=== PATIENT | female | born 2000 | race Caucasian/White ===

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

== ENCOUNTER 2018-02-04 21:50 | Emergency (ER) | payer OTHER ==
[2018-02-04 23:29] LABS: ABSOLUTE BASOPHILS # (AUTO) 0.1 10^3/uL (0.0-0.2); ABSOLUTE EOSINOPHILS # (AUTO) 0.2 10^3/uL (0.0-0.6); ABSOLUTE MONOCYTES (AUTO) 0.5 10^3/uL (0.1-1.4); ABSOLUTE NEUT (AUTO) 3.5 10^3/uL (1.7-8.2); BASOPHILS % (AUTO) 0.8 % (0-2); EOSINOPHILS % (AUTO) 3.3 % (0-6); HEMATOCRIT 39.7 % (36.0-47.0); HEMOGLOBIN 13.1 g/dL (12.0-15.5); LYMPHOCYTES % (AUTO) 41.1 % (13-45); MEAN CORPUSCULAR HEMOGLOBIN 26.4 pg (27.0-33.4); MEAN CORPUSCULAR HGB CONC 33.1 g/dL (32.0-36.0); MEAN CORPUSCULAR VOLUME 80 fl (80-97); MONOCYTES % (AUTO) 6.3 % (3-13); PLATELET COUNT 309 10^3/uL (150-450); RED BLOOD COUNT 4.97 10^6/uL (3.72-5.28); RED CELL DISTRIBUTION WIDTH 15.4 % (11.5-14.0); SEGMENTED NEUTROPHILS % (AUTO) 48.5 % (42-78); TOTAL CELLS COUNTED % (AUTO) 100 %; WHITE BLOOD COUNT 7.3 10^3/uL (4.0-10.5)
[2018-02-04 23:36] LABS: APPEARANCE,URINE SLIGHTLY-CLOUDY; BILIRUBIN,URINE NEGATIVE (NEGATIVE); COLOR,URINE YELLOW; GLUCOSE, URINE NEGATIVE (NEGATIVE); KETONES,URINE NEGATIVE (NEGATIVE); LEUKOCYTE ESTERASE,URINE NEGATIVE (NEGATIVE); NITRITE,URINE NEGATIVE (NEGATIVE); PROTEIN,URINE NEGATIVE (NEGATIVE); URINE SPECIFIC GRAVITY 1.019
[2018-02-04 23:45] LABS: ALANINE AMINOTRANSFERASE 28 U/L (5-35); ALBUMIN 4.3 g/dL (3.7-5.6); ALKALINE PHOSPHATASE 42 U/L (50-135); ANION GAP 11 (5-19); ASPARTATE AMINO TRANSFERASE 18 U/L (5-30); BILIRUBIN,DIRECT 0.1 mg/dL (0.0-0.4); BILIRUBIN,TOTAL 0.3 mg/dL (0.2-1.3); BLOOD UREA NITROGEN 12 mg/dL (7-20); CALCIUM 9.5 mg/dL (8.4-10.2); CARBON DIOXIDE 23 mmol/L (22-30); CHLORIDE 106 mmol/L (98-107); GLUCOSE 103 mg/dL (75-110); POTASSIUM 4.2 mmol/L (3.6-5.0); TOTAL PROTEIN 7.1 g/dL (6.3-8.2)
[2018-02-04 23:46] LABS: ACETAMINOPHEN < 10 ug/mL (10-30); ALCOHOL < 10 mg/dL (NONE DETECTED); SALICYLATE < 1.0 mg/dL (2.0-20.0)
[2018-02-04 23:51] LABS: URINE AMPHETAMINES SCREEN NEGATIVE; URINE BARBITURATES SCREEN NEGATIVE; URINE BENZODIAZEPINES SCREEN NEGATIVE; URINE COCAINE SCREEN NEGATIVE; URINE MARIJUANA (THC) SCREEN UNCONFIRMED POSITIVE; URINE METHADONE SCREEN NEGATIVE; URINE PHENCYCLIDINE SCREEN NEGATIVE
[2018-02-05] MEDS ORDERED: FLUOXETINE HCL 20 MG CAPSULE PO ONE (00:04)
--- NOTE | 2018-02-05 00:04 | ER Document Report ---
ED General - General Chief Complaint: Psych Problem Stated Complaint: PSYCH EVAL Time Seen by Provider: 02/04/18 22:32 Notes: Patient is a 17-year-old female without chronic medical problems who presents with several months of progressively worsening depression and apathy. The patient states that she does not "feel anything" and has been feeling increasingly depressed over the past several days. She states that she has an appointment to be seen at [facility] but it is not until the end of the month and felt like she needed to seek care today due to the progression of her symptoms. The patient reports a long-standing history of daily passive suicidal ideation but notes that she has no plan or intention of completing suicide. States that her level of passive suicidality has not changed in years. Denies access to firearms. She has never tried to harm herself in the past. No previous psychiatric hospitalizations. She has never been on therapy for depression. She denies any acute medical concerns. TRAVEL OUTSIDE OF THE [place] IN LAST 30 DAYS: No - Related Data Allergies/Adverse Reactions: morphine [Morphine] Allergy (Mild, Verified 02/04/18 21:54) Past Medical History - General Information source: Patient - Social History Smoking Status: Never Smoker Frequency of alcohol use: None Drug Abuse: Marijuana Lives with: Spouse/Significant other Family History: CAD, CVA, DM, Hyperlipidemia, Hypertension, Malignancy Renal/ Medical History: Reports: Hx Ovarian Cysts. Denies: Hx Peritoneal Dialysis Musculoskeletal Medical History: Reports Hx Musculoskeletal Deformity - scoliosis 40 degree curvature Past Surgical History: Reports: Hx Oral Surgery - Dental implant, Hx Orthopedic Surgery - Ash rods - Immunizations Immunizations up to date: Yes Hx Diphtheria, Pertussis, Tetanus Vaccination: Yes Review of Systems - Review of Systems Notes: Constitutional: Negative for fever. HENT: Negative for sore throat. Eyes: Negative for visual changes. Cardiovascular: Negative for chest pain. Respiratory: Negative for shortness of breath. Gastrointestinal: Negative for abdominal pain, vomiting or diarrhea. Genitourinary: Negative for dysuria. Musculoskeletal: Negative for back pain. Skin: Negative for rash. Neurological: Negative for headaches, weakness or numbness. 10 point ROS negative except as marked above and in HPI. Physical Exam - Vital signs Vitals: Temp Pulse Resp BP Pulse Ox 97.8 F 66 18 112/59 L 100 02/04/18 22:13 02/04/18 22:13 02/04/18 22:13 02/04/18 22:13 02/04/18 22:13 Interpretation: Normal Notes: PHYSICAL EXAMINATION: GENERAL: Well-appearing, well-nourished and in no acute distress. HEAD: Atraumatic, normocephalic. EYES: sclera anicteric, conjunctiva are normal. ENT: Moist mucous membranes. NECK: Normal range of motion LUNGS: Normal work of breathing HEART: 2+ radial pulses bilaterally EXTREMITIES: no pitting or edema. No cyanosis. NEUROLOGICAL: No focal neurological deficits. Moves all extremities spontaneously and on command. PSYCH: Poor eye contact, depressed mood. Denies SI or HI. SKIN: Warm, Dry, normal turgor, no rashes or lesions noted. Course - Re-evaluation Re-evalutation: 02/05/18 00:02 Patient presents with depression, feeling like she has lack of motion, lack of drive or energy. She notes that she chronically has passive suicidal ideation but is very clear to deny any specific plan, means or intentions but wish to complete suicide. The patient has no prior attempts on her life, no prior hospitalizations for suicidal ideation. She does not have access to firearms. She is willing to contract for safety. I do not believe she meets involuntary commitment criteria. Medical screening exam and labs unremarkable. The patient has elected to go home and follow-up as an outpatient. I have started her on fluoxetine 20 mg daily. At this time will discharge with return precautions and follow-up recommendations. Verbal discharge instructions given a the bedside and opportunity for questions given. Medication warnings reviewed. Patient is in agreement with this plan and has verbalized understanding of return precautions and the need for primary care follow-up in the next 24-72 hours. - Vital Signs Vital signs: Temp Pulse Resp BP Pulse Ox 98.1 F 70 18 110/60 100 02/05/18 00:12 02/05/18 00:12 02/05/18 00:12 02/05/18 00:12 02/05/18 00:12 - Laboratory Result Diagrams: 02/04/18 23:15 02/04/18 23:15 Laboratory results interpreted by me: 02/04/18 02/04/18 02/04/18 23:15 23:15 23:15 MCH 26.4 L RDW 15.4 H Alkaline Phosphatase 42 L Urine Urobilinogen 2.0 H Salicylates < 1.0 L Acetaminophen < 10 L Discharge - Discharge Clinical Impression: Anxiety Depression Qualifiers: Depression Type: unspecified Qualified Code(s): F32.9 - Major depressive disorder, single episode, unspecified Condition: Good Disposition: HOME, SELF-CARE Additional Instructions: Please return if you have thoughts of wanting to hurt yourself, hurt others, or have any other symptoms that are concerning to you. Please take the fluoxetine daily. This medication will take approximately 6 weeks before you notice any major effects. Please do not stop this medication abruptly. Please follow-up with 1 of the listed resources as soon as possible so that your therapy can be continued. Prescriptions: Fluoxetine HCl 20 mg PO DAILY #30 tablet Referrals: KEITH NUGENT DO [Primary Care Provider] - Follow up as needed
[2018-02-05 00:30] VITALS: BP 110/60
== END 2018-02-05 00:12 | disposition home or self-care (01) ==
LOC: ER 21:50
DX: F32.9 Major depressive disorder, single episode, unspecified (principal); F41.9 Anxiety disorder, unspecified; R45.851 Suicidal ideations; F12.10 Cannabis abuse, uncomplicated; Z88.5 Allergy status to narcotic agent
CPT/HCPCS: 36415; 80053; 80307; 81001; 84703; 85025; 99284

== ENCOUNTER 2018-02-11 08:53 | Emergency (ER) | payer OTHER ==
--- NOTE | 2018-02-11 09:35 | ER Document Report ---
ED General - General Chief Complaint: Vision Problem Stated Complaint: DIFFICULTY BREATHING Time Seen by Provider: 02/11/18 09:17 TRAVEL OUTSIDE OF THE [place] IN LAST 30 DAYS: No - HPI Patient complains to provider of: insomnia Onset: Other - This 17-year-old female with a history of anxiety and depression presents for evaluation of insomnia over the last 7 days since starting Prozac. She notes that she had never been treated for depression in the past but has had issues with depression for some long time. She has been taking 20 mg of Prozac daily since that time and since has had difficulty sleeping. She denies any self-injurious thought notes that her depression is much better than it has been in the past, she denies any anxiety does endorse some palpitations. She has been utilizing a caffeine supplement daily. She has tried Benadryl and some melatonin to help with her sleep none of which have helped. - Related Data Allergies/Adverse Reactions: morphine [Morphine] Allergy (Mild, Verified 02/11/18 08:53) Past Medical History - General Information source: Patient - Social History Smoking Status: Never Smoker Family History: CAD, CVA, DM, Hyperlipidemia, Hypertension, Malignancy Renal/ Medical History: Reports: Hx Ovarian Cysts. Denies: Hx Peritoneal Dialysis Musculoskeletal Medical History: Reports Hx Musculoskeletal Deformity - scoliosis 40 degree curvature Past Surgical History: Reports: Hx Oral Surgery - Dental implant, Hx Orthopedic Surgery - Ash rods - Immunizations Immunizations up to date: Yes Hx Diphtheria, Pertussis, Tetanus Vaccination: Yes Review of Systems - Review of Systems -: Yes All other systems reviewed and negative Physical Exam - Vital signs Vitals: Temp Pulse Resp BP Pulse Ox 97.5 F 86 22 134/54 H 100 02/11/18 09:04 02/11/18 09:04 02/11/18 09:04 02/11/18 09:04 02/11/18 09:04 - General General appearance: Appears well In distress: None - HEENT Head: Normocephalic Eyes: Normal Conjunctiva: Normal Cornea: Normal Extraocular movements intact: Yes Eyelashes: Normal Pupils: PERRL - Respiratory Respiratory status: No respiratory distress Chest status: Nontender Breath sounds: Normal Chest palpation: Normal - Cardiovascular Rhythm: Regular Heart sounds: Normal auscultation Murmur: No - Abdominal Inspection: Normal Distension: No distension Tenderness: Nontender - Back Back: Normal - Extremities General upper extremity: Normal inspection, Nontender, Normal ROM, Normal strength General lower extremity: Normal inspection, Nontender, Normal ROM, Normal strength - Neurological Neuro grossly intact: Yes Cognition: Normal Orientation: AAOx4 [place] Coma Scale Eye Opening: Spontaneous [place] Coma Scale Verbal: Oriented [place] Coma Scale Motor: Obeys Commands [place] Coma Scale Total: 15 Speech: Normal Cranial nerves: Normal Cerebellar coordination: Normal Motor strength normal: LUE, RUE, LLE, RLE - Psychological Associated symptoms: Normal affect Course - Re-evaluation Re-evalutation: 02/11/18 11:17 This young lady who presents for evaluation of insomnia. She was previously being treated for depression with initiation of Prozac, she states that her depressive symptoms have greatly improved after the initiation of Prozac. She however has now developed insomnia which is not improving. She notes that she did have some palpitations prior to arrival. Will plan to obtain an EKG. EKG demonstrates normal morphology, no appreciable arrhythmia no prolonged QT no Brugada pattern. Will initiate treatment with BuSpar for this patient she is due to follow-up in approximately 10 days. Because that is the case will give her a short duration prescription, 5 mg nightly. - Vital Signs Vital signs: Temp Pulse Resp BP Pulse Ox 97.5 F 86 14 108/63 100 02/11/18 09:04 02/11/18 09:04 02/11/18 10:01 02/11/18 10:00 02/11/18 10:01 Discharge - Discharge Clinical Impression: Insomnia Qualifiers: Insomnia type: unspecified Qualified Code(s): G47.00 - Insomnia, unspecified Depression Qualifiers: Depression Type: unspecified Qualified Code(s): F32.9 - Major depressive disorder, single episode, unspecified Condition: Good Disposition: HOME, SELF-CARE Instructions: Insomnia ([facility]) Prescriptions: Buspirone HCl [Buspar 5 mg Tablet] 1 tab PO DAILY #15 tab Referrals: KEITH NUGENT DO [Primary Care Provider] - Follow up as needed
[2018-02-11 11:40] VITALS: BP 115/73
--- NOTE | 2018-02-11 13:23 | EKG REPORT ---
SEVERITY:- NORMAL ECG - SINUS RHYTHM : Confirmed by: Jaylon Gonsales MD 11-Feb-2018 13:23:16
== END 2018-02-11 11:41 | disposition home or self-care (01) ==
LOC: ER 08:53
DX: G47.00 Insomnia, unspecified (principal); F32.9 Major depressive disorder, single episode, unspecified; R00.2 Palpitations; Z88.5 Allergy status to narcotic agent
CPT/HCPCS: 93005; 93010; 99284

== ENCOUNTER 2018-06-23 10:45 | Emergency (ER) | payer OTHER ==
--- NOTE | 2018-06-23 11:03 | ER Document Report ---
HPI - HPI Time Seen by Provider: 06/23/18 10:55 Pain Level: 0 Notes: Patient is a 18-year-old female no significant past medical history who presents to the emergency department requesting a work note she was sent home because she has had intermittent nausea vomiting. She had 1 episode today of n/v, but that has since resolved. Patient states that she has been having intermittent nausea vomiting over the last 1-2 months for unknown reason. She has been taking home test that were negative, and is requesting a blood test. Patient states that she otherwise feels well and is able to eat and drink without any difficulties. She is urinating normally aside from increased frequency. She is having normal bowel movements. She has not had any other vaginal discharge, odor, or bleeding. Patient states that she has no concern of STD or STI and does not want testing for it. No other concerns or complaints. Denies any headache, fever, neck pain, URI, sore throat, chest pain, palpitations, syncope, cough, shortness of breath, wheeze, dyspnea, abdominal pain, diarrhea, urinary retention, dysuria, hematuria, or rash. - ROS Systems Reviewed and Negative: Yes All other systems reviewed and negative - REPRODUCTIVE Reproductive: DENIES: : Past Medical History - Social History Smoking Status: Never Smoker Family History: CAD, CVA, DM, Hyperlipidemia, Hypertension, Malignancy Renal/ Medical History: Reports: Hx Ovarian Cysts. Denies: Hx Peritoneal Dialysis Musculoskeletal Medical History: Reports Hx Musculoskeletal Deformity - scoliosis 40 degree curvature Past Surgical History: Reports: Hx Oral Surgery - Dental implant, Hx Orthopedic Surgery - Ash rods - Immunizations Immunizations up to date: Yes Hx Diphtheria, Pertussis, Tetanus Vaccination: Yes Vertical Provider Document - CONSTITUTIONAL Agree With Documented VS: Yes Notes: PHYSICAL EXAMINATION: GENERAL: Well-appearing, well-nourished and in no acute distress. HEAD: Atraumatic, normocephalic. EYES: Pupils equal round and reactive to light, extraocular movements intact, sclera anicteric, conjunctiva are normal. ENT: Nares patent and without discharge. oropharynx clear without exudates. No tonsilar hypertrophy or erythema. Moist mucous membranes. NECK: Normal range of motion, supple without lymphadenopathy LUNGS: Breath sounds clear to auscultation bilaterally and equal. No wheezes rales or rhonchi. HEART: Regular rate and rhythm without murmurs, rubs, gallops. ABDOMEN: Soft, nontender, nondistended abdomen. No guarding, no rebound. No masses appreciated. Normal bowel sounds present. No CVA tenderness bilaterally. : deferred. pt declined. Musculoskeletal: FROM to passive/active. Strength 5+/5. Extremities: No cyanosis, clubbing, or edema b/l. Peripheral pulses 2+. Capillary refill less than 3 seconds. NEUROLOGICAL: Normal speech, normal gait. PSYCH: Normal mood, normal affect. SKIN: Warm, Dry, normal turgor, no rashes or lesions noted. - INFECTION CONTROL TRAVEL OUTSIDE OF THE [place] IN LAST 30 DAYS: No Course - Re-evaluation Re-evalutation: 06/23/18 12:03 Patient is an afebrile, well-hydrated, 18-year-old female who presents emergency department with intermittent nausea and vomiting, unspecified. Vitals are acceptable without significant tachycardia, tachypnea, or hypoxia. PE is otherwise unremarkable. Patient's abdomen is soft and nontender. Her lungs are clear to auscultation bilaterally. She is nontoxic-appearing and is tolerating p.o. without difficulty. HCG testing was negative. Urinalysis unremarkable. Patient states that she has Zofran at home that she can use if needed. She is currently asymptomatic. No other concerns or complaints. Low suspicion/risk for acute appendicitis, bowel obstruction, acute cholecystitis, acute cholangitis, perforated diverticulitis, incarcerated hernia, pancreatitis, perforated ulcer, peritonitis, sepsis, pelvic inflammatory disease, ectopic , tubo-ovarian abscess, ovarian torsion, or other systemic emergent condition at this time. Patient is aware that her condition can change from initial presentation and she needs to monitor symptoms closely and seek medical attention if any acute changes. Conservative measures otherwise for symptoms. Recheck with your PCM in 3-5 days. Consider consult with a stack attendant. Return to the ED with any worsening/concerning symptoms otherwise as reviewed in discharge. Patient is in agreement. Discharge - Discharge Clinical Impression: Nausea and vomiting Qualifiers: Vomiting type: unspecified Vomiting Intractability: non-intractable Qualified Code(s): R11.2 - Nausea with vomiting, unspecified Condition: Stable Disposition: HOME, SELF-CARE Instructions: Vomiting ([facility]) Additional Instructions: Maintain adequate fluid and food intake [place] diet ([employer] Bananas, rice, apples, toast, etc Zofran as needed tylenol if needed Monitor for any worsening symptoms Make sure you are staying hydrated enough to urinate and have normal BM's Recheck with your PCM in 3-5 days Consider consult with Gastroenterology for ongoing/worsening symptoms Return to the ED with any worsening symptoms and/or development of fever, headache, chest pain, palpitations, syncope, shortness of breath, trouble breathing, abdominal pain, n/v/d, blood in stool/urine, weakness, or other worsening symptoms that are concerning to you. Forms: Return to Work, Elevated Blood Pressure Referrals: KEITH NUGENT DO [NO LOCAL MD] - Follow up as needed TOD PATEL MD [ACTIVE STAFF] - Follow up as needed [facility] [Provider Group] - Follow up as needed
[2018-06-23 11:29] LABS: APPEARANCE,URINE CLEAR; BILIRUBIN,URINE NEGATIVE (NEGATIVE); COLOR,URINE COLORLESS; GLUCOSE, URINE NEGATIVE (NEGATIVE); KETONES,URINE NEGATIVE (NEGATIVE); LEUKOCYTE ESTERASE,URINE NEGATIVE (NEGATIVE); NITRITE,URINE NEGATIVE (NEGATIVE); PROTEIN,URINE NEGATIVE (NEGATIVE); URINE SPECIFIC GRAVITY 1.002; UROBILINOGEN,URINE NEGATIVE mg/dL (<2.0)
[2018-06-23 12:08] VITALS: BP 128/60
== END 2018-06-23 12:12 | disposition home or self-care (01) ==
LOC: ER 10:45
DX: R11.2 Nausea with vomiting, unspecified (principal)
CPT/HCPCS: 36415; 81001; 84703; 87086; 87088; 99282

== ENCOUNTER 2019-01-04 01:40 | Emergency (ER) | payer SELFPAY ==
--- NOTE | 2019-01-04 01:58 | ER Document Report ---
ED Psych Disorder / Suicide - General Chief Complaint: Psych Problem Stated Complaint: PSYCH Time Seen by Provider: 01/04/19 01:58 Mode of Arrival: Ambulatory Information source: Patient Notes: HISTORY OF PRESENT ILLNESS: Patient is a 18-year-old female at 10+2 weeks with a past medical history of depression who presents with increasing depression after she was taken off most of her medications 2 weeks ago. Patient reports that when she found out she was , her physician took her off all of her medications except Zoloft which she currently is taking. She reports that she has been increasingly depressed and today felt as though she may want to hurt herself, however she denies a specific plan to harm herself. Patient is very tearful. Onset: 2 weeks ago Provocation: Taken off medications Quality: Depression Radiation: None Severity: Moderate Timing: Consistent SI/HI: Passive thoughts but no plan Hallucinations: None Current therapist: None Current treatment: Zoloft REVIEW OF SYSTEMS: CONSTITUTIONAL : Denies fever or chills, no sweats. Denies recent illness. EENT: Denies eye, ear, throat, or mouth pain or symptoms. Denies nasal or sinus congestion. CARDIOVASCULAR: Denies chest pain. RESPIRATORY: Denies cough, cold, or chest congestion. Denies shortness of breath, difficulty breathing, or wheezing. GASTROINTESTINAL: Denies abdominal pain. Denies nausea, vomiting, or diarrhea. Denies constipation. GENITOURINARY: Denies difficulty urinating, painful urination, burning, frequency, or blood in urine. FEMALE GENITOURINARY: Denies vaginal bleeding, abnormal or irregular periods. Last menstrual period MUSCULOSKELETAL: Denies neck or back pain or joint pain or swelling. SKIN: Denies rash or skin lesions. HEMATOLOGIC : Denies easy bruising or bleeding. LYMPHATIC: Denies swollen, enlarged glands. NEUROLOGICAL: Denies altered mental status or loss of consciousness. Denies headache. Denies weakness or paralysis or loss of use of either side. Denies problems with gait or speech. Denies sensory or motor loss. PSYCHIATRIC: Denies suicidal/homicidal thoughts. Positive for increasing depression. All other systems reviewed and negative. PHYSICAL EXAMINATION: GENERAL: Tearful but well-appearing, well-nourished and in no acute distress. HEAD: Atraumatic, normocephalic. No scalp deformity, depression, or crepitance. EYES: Pupils are 3 mm and equal/round/reactive to light, extraocular movements intact, sclera anicteric, conjunctiva are normal. ENT: Nares patent bilaterally, oropharynx clear without exudates or palatal petechia. Moist mucous membranes. No tonsil hypertrophy. NECK: Normal range of motion, supple without lymphadenopathy. LUNGS: Breath sounds present, equal, and clear to auscultation bilaterally. No wheezes, rales, or rhonchi. HEART: Regular rate and rhythm without murmurs, rubs, or gallops. 2+ peripheral pulses. Normal capillary refill. ABDOMEN: Soft, nontender, nondistended. Normoactive bowel sounds. No guarding, no rebound. No masses appreciated. BACK: Normal contour, no midline tenderness. Rectal exam deferred. GENITAL/PELVC: Deferred. EXTREMITIES: Normal range of motion, no pitting or edema. No cyanosis. NEUROLOGICAL: No focal neurological deficits. Moves all extremities spontaneously and on command. PSYCH: Depressed mood, normal affect. No active suicidal thoughts/ideations. No homicidal thoughts/ideations. No hallucinations. SKIN: Warm, dry, normal turgor, no rashes or lesions noted. ASSESSMENT AND PLAN: This patient is a 18-year-old female at 10+2 weeks who presents with increasing depression in the setting of being taken off her medications after finding out she was . 1. Will obtain medical clearance and IVC for inpatient treatment. 2. Will observe her overnight. TRAVEL OUTSIDE OF THE [place] IN LAST 30 DAYS: No - HPI Patient complains to provider of: Other - Depression Onset: Other - 2 weeks ago Onset was: Gradual Quality of pain: No pain Severity: None Pain Level: Denies Situational problems related to: Other - Recently found that she was and was taken off of her medications Normal mood: No - Depressed Associated symptoms: Depressed Similar symptoms previously: Yes Recently seen / treated by doctor: No - Related Data Allergies/Adverse Reactions: morphine [Morphine] Allergy (Mild, Verified 01/04/19 01:42) Past Medical History - General Information source: Patient - Social History Smoking Status: Never Smoker Chew tobacco use (# tins/day): No Frequency of alcohol use: None Drug Abuse: None Lives with: Family Family History: CAD, CVA, DM, Hyperlipidemia, Hypertension, Malignancy Patient has suicidal ideation: No Patient has homicidal ideation: No - Past Medical History Cardiac Medical History: Reports: None Pulmonary Medical History: Reports: None EENT Medical History: Reports: None Neurological Medical History: Reports: None Endocrine Medical History: Reports: None Renal/ Medical History: Reports: Hx Ovarian Cysts. Denies: Hx Peritoneal Dialysis Malignancy Medical History: Reports: None GI Medical History: Reports: None Musculoskeletal Medical History: Reports Hx Musculoskeletal Deformity - scoliosis 40 degree curvature Skin Medical History: Reports None Psychiatric Medical History: Reports: Hx Depression Traumatic Medical History: Reports: None Infectious Medical History: Reports: None Past Surgical History: Reports: Hx Oral Surgery - Dental implant, Hx Orthopedic Surgery - Ash rods - Immunizations Immunizations up to date: Yes Hx Diphtheria, Pertussis, Tetanus Vaccination: Yes Review of Systems - Review of Systems Constitutional: No symptoms reported EENT: No symptoms reported Cardiovascular: No symptoms reported Respiratory: No symptoms reported Gastrointestinal: No symptoms reported Genitourinary: No symptoms reported Female Genitourinary: No symptoms reported Musculoskeletal: No symptoms reported Skin: No symptoms reported Hematologic/Lymphatic: No symptoms reported Neurological/Psychological: See HPI, Depression -: Yes All other systems reviewed and negative Physical Exam - Vital signs Vitals: Temp Pulse Resp BP Pulse Ox 98.3 F 100 16 132/68 H 98 01/04/19 01:56 01/04/19 01:56 01/04/19 01:56 01/04/19 01:56 01/04/19 01:56 Interpretation: Normal - General General appearance: Appears well, Alert - HEENT Head: Normocephalic, Atraumatic Eyes: Normal Pupils: PERRL - Respiratory Respiratory status: No respiratory distress Chest status: Nontender Breath sounds: Normal Chest palpation: Normal - Cardiovascular Rhythm: Regular Heart sounds: Normal auscultation Murmur: No - Abdominal Inspection: Normal Distension: No distension Bowel sounds: Normal Tenderness: Nontender Organomegaly: No organomegaly - Back Back: Normal, Nontender - Extremities General upper extremity: Normal inspection, Nontender, Normal color, Normal ROM, Normal temperature General lower extremity: Normal inspection, Nontender, Normal color, Normal ROM, Normal temperature, Normal weight bearing. No: Katie's sign - Neurological Neuro grossly intact: Yes Cognition: Normal Orientation: AAOx4 Briana Coma Scale Eye Opening: Spontaneous Briana Coma Scale Verbal: Oriented [place] Coma Scale Motor: Obeys Commands Briana Coma Scale Total: 15 Speech: Normal Motor strength normal: LUE, RUE, LLE, RLE Sensory: Normal - Psychological Associated symptoms: Normal affect, Normal mood - Skin Skin Temperature: Warm Skin Moisture: Dry Skin Color: Normal Course - Re-evaluation Re-evalutation: 01/04/19 05:57 Patient is medically cleared. Pelvic ultrasound reveals an early intrauterine gestation without complications. - Vital Signs Vital signs: Temp Pulse Resp BP Pulse Ox 98.3 F 100 16 132/68 H 98 01/04/19 01:56 01/04/19 01:56 01/04/19 01:56 01/04/19 01:56 01/04/19 01:56 - Laboratory Result Diagrams: 01/04/19 02:12 01/04/19 02:12 Laboratory results interpreted by me: 01/04/19 01/04/19 01/04/19 02:12 02:12 02:12 MCV 79 L MCH 26.2 L RDW 14.8 H TSH 5.72 H Beta HCG, Quant 74015.00 H Salicylates < 1.0 L Acetaminophen < 10 L - Diagnostic Test Radiology reviewed: Image reviewed, Reports reviewed - EKG Interpretation by Me EKG shows normal: Sinus rhythm Rate: Normal Rhythm: NSR Felt/QRS: No: Right axis deviation, Left axis deviation, RBBB, LBBB, IVCD, LAHB/LAFB, LPHB/LPFB, Bifasicular block Voltage: No: Increased voltage, Consistant with LVH, Decreased voltage, Throughout, Limb leads P Waves: No: KRIS, LAE, Absent, AV Dissociation, Other Heart block present: No: 1st Degree, Mobitz 1, Mobitz 2, CHB (3rd degree block) When compared to previous EKG there are: No significant change Discharge - Discharge Clinical Impression: Chronic depression Qualifiers: Weeks of gestation: less than 8 weeks Qualified Code(s): Z3A.01 - Less than 8 weeks gestation of Condition: Stable Disposition: PSYCH HOSP/UNIT
[2019-01-04 02:29] LABS: ABSOLUTE BASOPHILS # (AUTO) 0.1 10^3/uL (0.0-0.2); ABSOLUTE EOSINOPHILS # (AUTO) 0.3 10^3/uL (0.0-0.6); ABSOLUTE MONOCYTES (AUTO) 0.7 10^3/uL (0.1-1.4); ABSOLUTE NEUT (AUTO) 5.8 10^3/uL (1.7-8.2); BASOPHILS % (AUTO) 0.8 % (0-2); EOSINOPHILS % (AUTO) 2.5 % (0-6); HEMATOCRIT 40.1 % (36.0-47.0); HEMOGLOBIN 13.4 g/dL (12.0-15.5); LYMPHOCYTES % (AUTO) 30.1 % (13-45); MEAN CORPUSCULAR HEMOGLOBIN 26.2 pg (27.0-33.4); MEAN CORPUSCULAR HGB CONC 33.3 g/dL (32.0-36.0); MEAN CORPUSCULAR VOLUME 79 fl (80-97); MONOCYTES % (AUTO) 7.4 % (3-13); PLATELET COUNT 353 10^3/uL (150-450); RED CELL DISTRIBUTION WIDTH 14.8 % (11.5-14.0); SEGMENTED NEUTROPHILS % (AUTO) 59.2 % (42-78); TOTAL CELLS COUNTED % (AUTO) 100 %; WHITE BLOOD COUNT 9.8 10^3/uL (4.0-10.5)
[2019-01-04 02:46] LABS: ALBUMIN 4.6 g/dL (3.5-5.0); ALKALINE PHOSPHATASE 50 U/L (38-126); ANION GAP 11 (5-19); ASPARTATE AMINO TRANSFERASE 23 U/L (14-36); BILIRUBIN,TOTAL 0.4 mg/dL (0.2-1.3); BLOOD UREA NITROGEN 11 mg/dL (7-20); CARBON DIOXIDE 22 mmol/L (22-30); CHLORIDE 106 mmol/L (98-107); GLUCOSE 94 mg/dL (75-110); POTASSIUM 3.6 mmol/L (3.6-5.0); TOTAL PROTEIN 7.6 g/dL (6.3-8.2)
[2019-01-04 02:47] LABS: ACETAMINOPHEN < 10 ug/mL (10-30); ALCOHOL < 10 mg/dL (NONE DETECTED); SALICYLATE < 1.0 mg/dL (2.0-20.0)
[2019-01-04 03:14] LABS: FREE T4 (FREE THYROXINE) 0.99 ng/dL (0.78-2.19)
--- NOTE | 2019-01-04 03:24 | RADIOLOGY REPORT (SQ) ---
EXAM DESCRIPTION: US TRANSVAGINAL COMPLETED DATE/TME: 01/04/2019 02:07 CLINICAL HISTORY: 18 years, Female, Abdominal pain COMPARISON: None. TECHNIQUE: Transvaginal pelvic ultrasound LIMITATIONS: None. FINDINGS: Uterus: Anteverted. Measures 8.3 x 5.9 x 4.9 cm. Endometrium: Intrauterine gestational sac. Gestational sac: MSD measures 1.85 cm. Shape is oval. Two yolk sacs are visualized. No pole is seen at this time. Maternal ovaries: Right: Measures 2.4 x 2.1 x 1.6 cm. Normal doppler flow. Left: Measures 3.2 x 2.5 x 2.4 cm. Normal doppler flow. There is a corpus luteal cyst that measures 1.1 x 1.8 x 1.1 cm. Clinical: LMP: 10/24/2018. MA: 10 weeks two days. MARYLIN: 07/31/2019. Ultrasound: MA: Six weeks six days. MARYLIN: 08/24/2019. IMPRESSION: Intrauterine gestational sac with two yolk sacs identified. No pole is seen at this time, likely due to an early . Recommend follow-up ultrasound and correlation with beta-hCG. copyright 2010 [employer]- All Rights Reserved
[2019-01-04 03:28] LABS: THYROID STIMULATING HORMONE 5.72 uIU/mL (0.47-4.68)
[2019-01-04 08:35] LABS: APPEARANCE,URINE SLIGHTLY-CLOUDY; BILIRUBIN,URINE NEGATIVE (NEGATIVE); COLOR,URINE YELLOW; GLUCOSE, URINE NEGATIVE (NEGATIVE); KETONES,URINE 20 mg/dL (NEGATIVE); LEUKOCYTE ESTERASE,URINE NEGATIVE (NEGATIVE); NITRITE,URINE NEGATIVE (NEGATIVE); PROTEIN,URINE NEGATIVE (NEGATIVE); URINE SPECIFIC GRAVITY 1.015; UROBILINOGEN,URINE NEGATIVE mg/dL (<2.0)
[2019-01-04 08:47] LABS: URINE AMPHETAMINES SCREEN UNCONFIRMED POSITIVE; URINE BARBITURATES SCREEN NEGATIVE; URINE BENZODIAZEPINES SCREEN NEGATIVE; URINE COCAINE SCREEN NEGATIVE; URINE MARIJUANA (THC) SCREEN UNCONFIRMED POSITIVE; URINE METHADONE SCREEN NEGATIVE; URINE PHENCYCLIDINE SCREEN NEGATIVE
--- NOTE | 2019-01-04 09:27 | EKG REPORT ---
SEVERITY:- BORDERLINE ECG - SINUS RHYTHM BORDERLINE T ABNORMALITIES, INFERIOR LEADS : Confirmed by: Ban Zhou MD 04-Jan-2019 09:26:49
--- NOTE | 2019-01-04 09:52 | ER Document Report ---
Doctor's Note Notes: 01/04/19 09:50 Rounds: Chart reviewed, but patient talking on the phone so not interviewed at this time. Patient was brought in because of worsening depression. She is been diagnosed with depression and on medications, but was recently diagnosed as being so all of her medications were stopped except for her Zoloft. Patient says she is begun having some suicidal thoughts. Lab studies showed a TSH level borderline high. Urine drug screen is positive for marijuana and amphetamines. Patient's ultrasound shows a gestational sac and 2 kevin sacs but no pole. Beta hCG was 22,940. Possibly too early to see more findings because too early in . Vital signs are all normal. Patient appears to be medically stable for transfer or discharge. Douglas Asif MD 01/04/19 10:54 Discussed ultrasound findings with the patient and explained to her that she is with a gestational sac and 2 yolk sacs means she likely has twins. However, there is no evidence of the pole or heartbeat, etc. at this time. I told her that she needs a repeat ultrasound in a week or 10 days and she says she already has one scheduled for next Wednesday. Douglas Asif MD
--- NOTE | 2019-01-04 11:34 | PSYCHOLOGICAL NOTE ---
Psych Note - Psych Note Date seen by psych provider: 01/04/19 Time seen by psych provider: 10:05 Psych Note: Reason For Consult:Suicidal ideation Consent Permissions:enrique Rivero, Patient disclosed that she is very happy currently because she just found out she is having twins. She states last night she was feeling overwhelmed and thinks that "my levels just bottomed out... I really think it was my meds that messed me up." Patient states that 2 weeks ago under her providers direction she stopped taking all of her medications other than Zoloft. She states that last night she was unable to just see that it was her medication because she was so stressed. She reports she even stopped smoking 2 weeks ago because of her so felt that she had no way to release her emotions. She reports this is why she came to the hospital. Patient previously was on BuSpar, trazodone, Abilify, propanolol, Adderall, and Zoloft. They have health team contacted patient's Josefa nunez. He was unable to come to the hospital since the family only has one vehicle which is currently at the hospital with the patient. He discloses that he has no concerns with the patient returning home. He agrees to be part of patient's plan of care i.e. no access to medications weapons and follow through with mental health recommendations. Patient is alert and orientated to person, place, time and circumstance. Mood is euthymic with congruent affect as evidenced by smiling and engaging with clinician. Patient denies current suicidal and homicidal ideation. Delusions are absent and behaviors congruent with an intact reality based presentation I organized and linear thought process. Eye contact is well-maintained. Conversational speech is within normal rate, tone and prosody. Intellectual abilities appear to be within the average range. Attention and concentration are good. Insight, judgment, impulse control are fair. Diagnosis: Major Depressive Disorder Medication recommendations per [facility]'s contracted psychiatrist Dr. Jean Paul MONK are as follows no medication recommendations at this time Impression\\plan:Patient is cleared from acute psychiatric services. Patient does not meet IVC criteria per [place] GS 122C. Patient was experiencing passive suicidal ideation (ie no plans, means or intent) and feeling overwhelmed. She just stopped taking her medications, other than zoloft, 2 weeks ago (under her outpatient mental health provider guidance) when she found out she was . Patient has a history of chronic passive suicidal ideation and had never taken and actions, or engaged in gestures. Patient is calm and reports she is excited about her and finding out that it is twins. Patient significant other agrees to be part of patient's plan of care i.e. no access to medications and weapons and follow through with mental health recommendations. He has no concerns with the patient returning home to him. Patient is recommended to continue working with her outpatient mental health provider and engage in therapeutic services to assist during her and need for less medications. Dr. Siddiqui was consulted to care management of this patient; attending physicians in agreement with recommendations and disposition.
[2019-01-04 12:49] VITALS: BP 101/78
== END 2019-01-04 12:55 | disposition home or self-care (01) ==
LOC: ER 01:40 → EEVIPCON 01:40 → ER 12:55
DX: O99.351 Diseases of the nervous system complicating pregnancy, first trimester (principal); F32.9 Major depressive disorder, single episode, unspecified; Z3A.10 10 weeks gestation of pregnancy
CPT/HCPCS: 36415; 76817; 80053; 80307; 81001; 84439; 84443; 84702; 85025; 93005; 93010; 99285

== ENCOUNTER → 2019-01-10 | Outpatient (CLI) | payer SELFPAY ==
--- NOTE | 2019-01-10 17:20 | RADIOLOGY REPORT (SQ) ---
EXAM DESCRIPTION: U/S [id number] TRNABD 1GES W/ODOP COMPLETED DATE/TIME: 01/10/2019 4:37 pm REASON FOR STUDY: Z34.81 ENCOUNTER FOR SUPRVSN OF NORMAL , FIRST TRIMESTER Z34.81 ENCOUNTE R FOR SUPRVSN OF NORMAL , FIRST TRIM COMPARISON: None. TECHNIQUE: Transabdominal static and realtime grayscale images acquired of the pelvis. Additional se lected spectral and color Doppler images recorded. All images stored on PACs. CG: Not available. CLINICAL DATES: 11 weeks 1 day LIMITATIONS: None. FINDINGS: Twin Intra-uterine gestation TYPE OF TWIN: Monochorionic Monoamniotic. Single gestational sac. Single yolk sac. TWIN A: ULTRASOUND EGA: 6 weeks 2 days ULTRASOUND MARYLIN: 09/03/2019 EFW: Not applicable. Under 20 weeks. CRL: 5.6 mm GESTATIONAL SAC: Not applicable. FP present. SURVEY: Too early to assess. FHR: 108 bpm. AMNIOTIC FLUID: Adequate amount. PLACENTA: Too early to assess. SUBCHORIONIC BLEED: No. SIZE OF BLEED: Not applicable. TWIN B: ULTRASOUND EGA: 6 weeks 2 days ULTRASOUND MARYLIN: 09/03/2019 EFW: Not applicable. Under 20 weeks. CRL: 5.6 mm GESTATIONAL SAC: Not applicable. FP present. SURVEY: Too early to assess. FHR: 115 bpm. AMNIOTIC FLUID: Adequate amount. SUBCHORIONIC BLEED: No. SIZE OF BLEED: Not applicable. UTERUS: No masses. No anomalies. CERVICAL LENGTH: 1.9 cm. Closed. RIGHT ADNEXA: Normal ovary with normal vascular flow. No adnexal free fluid. No adnexal masses. LEFT ADNEXA: Normal ovary with normal vascular flow. No adnexal free fluid. No adnexal masses. FREE FLUID: None. OTHER: No other significant finding. IMPRESSION: LIVING TWIN INTRAUTERINE TWIN A EGA: 6 weeks 2 days. TWIN B EGA: 6 weeks 2 days. Trimester of : First trimester - 0 to 13 weeks. TECHNICAL DOCUMENTATION: JOB ID: [id number] [employer]- All Rights Reserved rev-09/10 Reading location - IP/workstation name: [email or web address]
== END ==
LOC: RAD 14:48
PROVIDERS: ATTEND Nurse Practitioner Family
DX: O30.001 Twin pregnancy, unspecified number of placenta and unspecified number of amniotic sacs, first trimester (principal)
CPT/HCPCS: 76801

== ENCOUNTER 2019-01-30 17:46 | Emergency (ER) | payer SELFPAY ==
[2019-01-30 18:39] VITALS: BP 112/62
--- NOTE | 2019-01-30 19:48 | ER Document Report ---
ED Medical Screen (RME) - General Chief Complaint: Numbness Stated Complaint: NUMBNESS,LEG PAIN Time Seen by Provider: 01/30/19 19:46 Mode of Arrival: Ambulatory Information source: Patient Notes: Patient states 2 days ago she was bent over washing the dog and when she stood up she had numbness to her legs. Patient states the numbness resolved and then today she was sitting down and stood up and had numbness in which she did not feel like her legs were holding her weight. Patient states symptoms lasted for about 15 minutes. Patient states that while she has been here she has developed left-sided abdominal pain. Patient is currently 9 weeks with a twin gestation. Patient does report a history of scoliosis with Ash shruthi placement. I have greeted and performed a rapid initial assessment of this patient. A comprehensive ED assessment and evaluation of the patient, analysis of test results and completion of the medical decision making process will be conducted by additional ED providers. TRAVEL OUTSIDE OF THE [place] IN LAST 30 DAYS: No - Related Data Allergies/Adverse Reactions: morphine [Morphine] Allergy (Mild, Verified 01/04/19 01:42) Past Medical History - Social History Chew tobacco use (# tins/day): No Frequency of alcohol use: None Renal/ Medical History: Reports: Hx Ovarian Cysts. Denies: Hx Peritoneal Dialysis Musculoskeltal Medical History: Reports Hx Musculoskeletal Deformity - scoliosis 40 degree curvature Psychiatric Medical History: Reports: Hx Depression Past Surgical History: Reports: Hx Oral Surgery - Dental implant, Hx Orthopedic Surgery - Ash rods - Immunizations Immunizations up to date: Yes Hx Diphtheria, Pertussis, Tetanus Vaccination: Yes Physical Exam - Vital signs Vitals: Temp Pulse Resp BP Pulse Ox 97.7 F 72 18 112/62 98 01/30/19 18:37 01/30/19 18:37 01/30/19 18:37 01/30/19 18:37 01/30/19 18:37 - General General appearance: Appears well, Alert Notes: Left side abdominal tenderness Course - Vital Signs Vital signs: Temp Pulse Resp BP Pulse Ox 97.7 F 72 18 112/62 98 01/30/19 18:37 01/30/19 18:37 01/30/19 18:37 01/30/19 18:37 01/30/19 18:37
== END 2019-01-30 20:30 | disposition left against medical advice (07) ==
LOC: ER 17:46
DX: Z53.21 Procedure and treatment not carried out due to patient leaving prior to being seen by health care provider (principal); O26.891 Other specified pregnancy related conditions, first trimester; R20.0 Anesthesia of skin; R10.9 Unspecified abdominal pain; R53.1 Weakness; O30.001 Twin pregnancy, unspecified number of placenta and unspecified number of amniotic sacs, first trimester; Z3A.09 9 weeks gestation of pregnancy
CPT/HCPCS: 99283

== ENCOUNTER 2019-05-20 15:09 | Emergency (ER) | payer MEDICAID ==
--- NOTE | 2019-05-20 16:44 | ER Document Report ---
HPI - HPI Time Seen by Provider: 05/20/19 16:30 Pain Level: 0 Context: Patient is a 19-year-old female, who is 27 weeks who presents to the emergency department with a chief complaint of cough and congestion. Patient reports for about 1 week she has felt generalized weakness, she has a cough that turned productive about 2 days ago. Patient reports runny nose and intermittent nasal congestion. Patient denies ear pain. Patient reports she does have multiple sick contacts at work that have similar symptoms and was recently diagnosed with the flu. Patient did not receive an influenza vaccine this season. Patient reports she does take a vitamin as well as Zoloft. Patient reports she is tried Benadryl and over the counter medications for her symptoms without much relief. Patient denies nausea, vomiting or diarrhea. Patient denies abdominal pain. Patient denies vaginal bleeding or discharge. - REPRODUCTIVE LMP: MARYLIN 09/03/2019 Reproductive: REPORTS: : Past Medical History - General Information source: Patient - Social History Smoking Status: Never Smoker Chew tobacco use (# tins/day): No Frequency of alcohol use: None Drug Abuse: None Lives with: Family Family History: CAD, CVA, DM, Hyperlipidemia, Hypertension, Malignancy Patient has suicidal ideation: No Patient has homicidal ideation: No - Past Medical History Cardiac Medical History: Reports: None Pulmonary Medical History: Reports: None EENT Medical History: Reports: None Neurological Medical History: Reports: None Endocrine Medical History: Reports: None Renal/ Medical History: Reports: Hx Ovarian Cysts. Denies: Hx Peritoneal Dialysis Malignancy Medical History: Reports: None GI Medical History: Reports: None Musculoskeletal Medical History: Reports Hx Musculoskeletal Deformity - scoliosis 40 degree curvature Skin Medical History: Reports None Psychiatric Medical History: Reports: Hx Depression Traumatic Medical History: Reports: None Infectious Medical History: Reports: None Past Surgical History: Reports: Hx Oral Surgery - Dental implant, Hx Orthopedic Surgery - Ash rods - Immunizations Immunizations up to date: Yes Hx Diphtheria, Pertussis, Tetanus Vaccination: Yes Vertical Provider Document - CONSTITUTIONAL Agree With Documented VS: Yes Exam Limitations: No Limitations General Appearance: No Apparent Distress - INFECTION CONTROL TRAVEL OUTSIDE OF THE [place] IN LAST 30 DAYS: No - HEENT HEENT: Atraumatic, Normal ENT Exam, Normocephalic, PERRLA - NECK Neck: Normal Inspection Notes: No cervical lymphadenopathy. - RESPIRATORY Respiratory: Breath Sounds Normal, No Respiratory Distress Notes: Intermittent cough noted throughout physical exam. This is dry. - CARDIOVASCULAR Cardiovascular: Regular Rhythm, Tachycardia - GI/ABDOMEN Gastrointestinal: Abdomen Soft, Abdomen Non-Tender, Normal Bowel Sounds Notes: Gravid - MUSCULOSKELETAL/EXTREMETIES Musculoskeletal/Extremeties: FROM - NEURO Level of Consciousness: Awake, Alert, Appropriate - DERM Integumentary: Warm, Dry, No Rash Course - Re-evaluation Re-evalutation: 05/20/19 16:43 Patient states she is more concerned that she may have the flu. Will test the patient for this. I did encourage p.o. fluids. I did offer Tylenol for body aches. Patient reports she not currently hurting. Patient reports she has not been running a fever. 05/20/19 18:30 Flu test was negative. I did discuss with the patient that she most likely has an upper respiratory infection due to a virus. Patient did take Tylenol. Encouraged to push p.o. intake to prevent dehydration. Patient nontoxic-appearing and in no cough at this time. - Vital Signs Vital signs: Temp Pulse Resp BP Pulse Ox 98.1 F 108 H 24 H 128/75 H 100 05/20/19 15:19 05/20/19 15:19 05/20/19 15:19 05/20/19 15:19 05/20/19 15:19 - Laboratory Laboratory results interpreted by me: 05/20/19 18:30 Laboratory 05/20/19 17:15 Influenza A (Rapid) NEGATIVE Influenza B (Rapid) NEGATIVE Discharge - Discharge Clinical Impression: Rhinorrhea, Cough, Nasal congestion Condition: Stable Disposition: HOME, SELF-CARE Additional Instructions: *Today you are seen in the emergency department for cough, congestion, nasal drainage and possible flu. Your influenza test was negative for influenza a and B. Please take Tylenol if you have any body aches or fever. Please make sure that you are staying adequately hydrated and pushing fluids to prevent deh ydration since you are . You can take [id number] Robitussin cough + chest congestion, this is an OTC medication. You may benefit from a humidifier, Vicks VapoRub, or Afrin. You can also use an cofh-hln-kbvrpoi Deedee pot would help flush your sinuses. UPPER RESPIRATORY ILLNESS: You have a viral infection of the respiratory passages -- a "cold." This common infection causes nasal congestion, drainage, and often sore throat and cough. It is highly contagious. The disease usually lasts about 10 to 14 days. There is no "cure" for the viral infection -- it must run its course. If there is a complication, such as bacterial infection in the nose, sinuses, middle ear, or bronchial tubes, antibiotics may be required. The antibiotics won't affect the virus. Drink plenty of fluids. A humidifier may help. An expectorant medication or decongestant may make you more comfortable. Use acetaminophen or ibuprofen for fever or aches. See the doctor if fever persists over two days, if there is any significant worsening of your symptoms, or if you simply fail to improve as expected. USE OF ACETAMINOPHEN (Tylenol): Acetaminophen may be taken for pain relief or fever control. It's much safer than aspirin, offering a wider range of "safe" dosages. It is safe during . Some brand names are Tylenol, Panadol, Datril, Anacin 3, Tempra, and Liquiprin. Acetaminophen can be repeated every four hours. The following are maximum recommended dosages: >89 pounds or adults 650 mg to 900 mg Acetaminophen can be repeated every four hours. Maximum dose not to exceed 4000 mg a day. FOLLOW-UP CARE: If you have been referred to a physician for follow-up care, call the physicians office for an appointment as you were instructed or within the next two days. If you experience worsening or a significant change in your symptoms, notify the physician immediately or return to the Emergency Department at any time for re-evaluation. Forms: Return to Work Referrals: [facility] [Provider Group] - Follow up as needed
[2019-05-20 18:11] LABS: A TYPE INFLUENZA AG NEGATIVE (NEGATIVE); B INFLUENZA AG NEGATIVE (NEGATIVE)
[2019-05-20 19:04] VITALS: BP 128/68
== END 2019-05-20 19:05 | disposition home or self-care (01) ==
LOC: ER 15:09
DX: O26.92 Pregnancy related conditions, unspecified, second trimester (principal); R09.81 Nasal congestion; R05 Cough; R53.1 Weakness; Z3A.27 27 weeks gestation of pregnancy
CPT/HCPCS: 87804; 99283

== ENCOUNTER 2019-06-29 17:35 | Outpatient (CLI) | payer MEDICAID ==
[2019-06-29 18:17] LABS: APPEARANCE,URINE SLIGHTLY-CLOUDY; BILIRUBIN,URINE NEGATIVE (NEGATIVE); COLOR,URINE STRAW; GLUCOSE, URINE NEGATIVE (NEGATIVE); KETONES,URINE TRACE mg/dL (NEGATIVE); LEUKOCYTE ESTERASE,URINE NEGATIVE (NEGATIVE); NITRITE,URINE NEGATIVE (NEGATIVE); PROTEIN,URINE NEGATIVE (NEGATIVE); URINE SPECIFIC GRAVITY 1.006; UROBILINOGEN,URINE NEGATIVE mg/dL (<2.0)
[2019-06-29 18:42] LABS: URINE AMPHETAMINES SCREEN NEGATIVE; URINE BARBITURATES SCREEN NEGATIVE; URINE BENZODIAZEPINES SCREEN NEGATIVE; URINE COCAINE SCREEN NEGATIVE; URINE MARIJUANA (THC) SCREEN NEGATIVE; URINE METHADONE SCREEN NEGATIVE; URINE PHENCYCLIDINE SCREEN NEGATIVE
== END 2019-06-29 19:07 | disposition home or self-care (01) ==
LOC: LC 17:35 → EEVIPCON 17:35 → LC 19:07
PROVIDERS: ATTEND Obstetrics & Gynecology Gynecology
PROC: 4A1HXCZ Monitoring of Products of Conception, Cardiac Rate, External Approach (ICD-10-PCS; principal; 2019-06-29)
DX: O36.8130 Decreased fetal movements, third trimester, not applicable or unspecified (principal); O24.410 Gestational diabetes mellitus in pregnancy, diet controlled; Z3A.30 30 weeks gestation of pregnancy
CPT/HCPCS: 80307; 81001; 94760

== ENCOUNTER 2019-07-03 14:25 | Outpatient (CLI) | payer MEDICAID ==
[2019-07-03 15:23] LABS: APPEARANCE,URINE CLEAR; BILIRUBIN,URINE NEGATIVE (NEGATIVE); COLOR,URINE YELLOW; GLUCOSE, URINE NEGATIVE (NEGATIVE); KETONES,URINE NEGATIVE (NEGATIVE); LEUKOCYTE ESTERASE,URINE NEGATIVE (NEGATIVE); NITRITE,URINE NEGATIVE (NEGATIVE); PROTEIN,URINE NEGATIVE (NEGATIVE); URINE SPECIFIC GRAVITY 1.009; UROBILINOGEN,URINE NEGATIVE mg/dL (<2.0)
[2019-07-03 15:39] LABS: UR PRO/CREAT RATIO RESULT 0.2 mg/mg (0.0-0.2); URINE CREATININE 56.5 mg/dL (16-327); URINE PROTEIN 13.7 mg/dL (<12)
[2019-07-03 15:44] LABS: URINE AMPHETAMINES SCREEN NEGATIVE; URINE BARBITURATES SCREEN NEGATIVE; URINE BENZODIAZEPINES SCREEN NEGATIVE; URINE COCAINE SCREEN NEGATIVE; URINE METHADONE SCREEN NEGATIVE; URINE PHENCYCLIDINE SCREEN NEGATIVE
[2019-07-03 15:49] LABS: ABSOLUTE EOSINOPHILS # (AUTO) 0.2 10^3/uL (0.0-0.6); ABSOLUTE MONOCYTES (AUTO) 0.9 10^3/uL (0.1-1.4); ABSOLUTE NEUT (AUTO) 11.4 10^3/uL (1.7-8.2); BASOPHILS % (AUTO) 0.2 % (0-2); EOSINOPHILS % (AUTO) 1.3 % (0-6); HEMATOCRIT 38.8 % (36.0-47.0); HEMOGLOBIN 13.1 g/dL (12.0-15.5); LYMPHOCYTES % (AUTO) 13.6 % (13-45); MEAN CORPUSCULAR HEMOGLOBIN 28.3 pg (27.0-33.4); MEAN CORPUSCULAR HGB CONC 33.7 g/dL (32.0-36.0); MEAN CORPUSCULAR VOLUME 84 fl (80-97); MONOCYTES % (AUTO) 6.1 % (3-13); PLATELET COUNT 245 10^3/uL (150-450); RED BLOOD COUNT 4.62 10^6/uL (3.72-5.28); RED CELL DISTRIBUTION WIDTH 14.1 % (11.5-14.0); SEGMENTED NEUTROPHILS % (AUTO) 78.8 % (42-78); TOTAL CELLS COUNTED % (AUTO) 100 %; WHITE BLOOD COUNT 14.5 10^3/uL (4.0-10.5)
[2019-07-03 15:51] LABS: URINE MARIJUANA (THC) SCREEN UNCONFIRMED POSITIVE
[2019-07-03 16:07] LABS: ALBUMIN 3.4 g/dL (3.5-5.0); ALKALINE PHOSPHATASE 143 U/L (38-126); ANION GAP 8 (5-19); ASPARTATE AMINO TRANSFERASE 26 U/L (14-36); BILIRUBIN,TOTAL 0.3 mg/dL (0.2-1.3); CALCIUM 8.7 mg/dL (8.4-10.2); CARBON DIOXIDE 21 mmol/L (22-30); CHLORIDE 104 mmol/L (98-107); GLUCOSE 98 mg/dL (75-110); POTASSIUM 3.9 mmol/L (3.6-5.0); TOTAL PROTEIN 6.2 g/dL (6.3-8.2)
[2019-07-03 16:09] LABS: BLOOD UREA NITROGEN 6 mg/dL (7-20)
== END 2019-07-03 16:39 | disposition home or self-care (01) ==
LOC: LC 14:25
PROVIDERS: ATTEND Obstetrics & Gynecology
PROC: 4A1HXCZ Monitoring of Products of Conception, Cardiac Rate, External Approach (ICD-10-PCS; principal; 2019-07-03)
DX: O13.3 Gestational [pregnancy-induced] hypertension without significant proteinuria, third trimester (principal); O30.003 Twin pregnancy, unspecified number of placenta and unspecified number of amniotic sacs, third trimester; Z3A.31 31 weeks gestation of pregnancy
CPT/HCPCS: 59899; 36415; 83615; 84156; 84550; 82570; 85025; 80053; 81001; 80307; G0480 ×2; 80349

== ENCOUNTER 2019-07-17 10:46 | Outpatient (CLI) | payer MEDICAID ==
[2019-07-17 11:29] LABS: APPEARANCE,URINE SLIGHTLY-CLOUDY; BILIRUBIN,URINE NEGATIVE (NEGATIVE); COLOR,URINE STRAW; GLUCOSE, URINE NEGATIVE (NEGATIVE); KETONES,URINE NEGATIVE (NEGATIVE); LEUKOCYTE ESTERASE,URINE NEGATIVE (NEGATIVE); NITRITE,URINE NEGATIVE (NEGATIVE); PROTEIN,URINE NEGATIVE (NEGATIVE); URINE SPECIFIC GRAVITY 1.004; UROBILINOGEN,URINE NEGATIVE mg/dL (<2.0)
[2019-07-17 11:48] LABS: URINE AMPHETAMINES SCREEN NEGATIVE; URINE BARBITURATES SCREEN NEGATIVE; URINE BENZODIAZEPINES SCREEN NEGATIVE; URINE COCAINE SCREEN NEGATIVE; URINE METHADONE SCREEN NEGATIVE; URINE PHENCYCLIDINE SCREEN NEGATIVE
[2019-07-17 11:52] LABS: UR PRO/CREAT RATIO RESULT 0.9 mg/mg (0.0-0.2); URINE CREATININE 20.5 mg/dL (16-327); URINE PROTEIN 18.6 mg/dL (<12)
[2019-07-17 11:53] LABS: URINE MARIJUANA (THC) SCREEN UNCONFIRMED POSITIVE
[2019-07-17 12:19] LABS: ABSOLUTE EOSINOPHILS # (AUTO) 0.2 10^3/uL (0.0-0.6); ABSOLUTE LYMPHOCYTES (AUTO) 1.7 10^3/uL (0.5-4.7); ABSOLUTE MONOCYTES (AUTO) 0.8 10^3/uL (0.1-1.4); ABSOLUTE NEUT (AUTO) 9.6 10^3/uL (1.7-8.2); BASOPHILS % (AUTO) 0.4 % (0-2); EOSINOPHILS % (AUTO) 1.2 % (0-6); HEMATOCRIT 38.2 % (36.0-47.0); HEMOGLOBIN 13.1 g/dL (12.0-15.5); LYMPHOCYTES % (AUTO) 13.4 % (13-45); MEAN CORPUSCULAR HEMOGLOBIN 28.7 pg (27.0-33.4); MEAN CORPUSCULAR HGB CONC 34.2 g/dL (32.0-36.0); MEAN CORPUSCULAR VOLUME 84 fl (80-97); MONOCYTES % (AUTO) 6.6 % (3-13); PLATELET COUNT 242 10^3/uL (150-450); RED BLOOD COUNT 4.55 10^6/uL (3.72-5.28); RED CELL DISTRIBUTION WIDTH 13.9 % (11.5-14.0); SEGMENTED NEUTROPHILS % (AUTO) 78.4 % (42-78); TOTAL CELLS COUNTED % (AUTO) 100 %; WHITE BLOOD COUNT 12.3 10^3/uL (4.0-10.5)
[2019-07-17 12:42] LABS: ALBUMIN 3.1 g/dL (3.5-5.0); ALKALINE PHOSPHATASE 149 U/L (38-126); ASPARTATE AMINO TRANSFERASE 21 U/L (14-36); CARBON DIOXIDE 20 mmol/L (22-30); GLUCOSE 94 mg/dL (75-110); POTASSIUM 4.1 mmol/L (3.6-5.0); TOTAL PROTEIN 5.6 g/dL (6.3-8.2)
[2019-07-17 12:43] LABS: ANION GAP 8 (5-19); CHLORIDE 106 mmol/L (98-107)
[2019-07-17 12:44] LABS: BILIRUBIN,TOTAL 0.1 mg/dL (0.2-1.3); BLOOD UREA NITROGEN 7 mg/dL (7-20); CALCIUM 8.9 mg/dL (8.4-10.2); URIC ACID 3.3 mg/dL (2.5-6.2)
== END 2019-07-17 13:25 | disposition home or self-care (01) ==
LOC: LC 10:46
PROVIDERS: ATTEND Obstetrics & Gynecology
PROC: 4A1HXCZ Monitoring of Products of Conception, Cardiac Rate, External Approach (ICD-10-PCS; principal; 2019-07-17)
DX: O30.003 Twin pregnancy, unspecified number of placenta and unspecified number of amniotic sacs, third trimester (principal); Z3A.34 34 weeks gestation of pregnancy
CPT/HCPCS: 36415; 83615; 84156; 84550; 82570; 85025; 80053; 81001; 80307; 59025; G0480 ×2; 80349

== ENCOUNTER 2019-08-09 09:35 | Outpatient (CLI) | payer MEDICAID ==
--- NOTE | 2019-08-09 09:40 | Non Stress Test Report ---
Non Stress Test Datetime Report Generated by CPN: 08/09/2019 09:40 DEMOGRAPHIC EGA NST: 34.1 EGA NST: 32.1 INDICATION Indication for Study (NST) Other: IUP @ 31.1 wks twins VITAL SIGNS Temperature - NST: 98.2 Pulse - NST: 88 RESP - NST: 14 NBPSYS NST: 133 NBPDIA NST: 71 URINE RESULTS Urine Protein, NST: Negative Urine Ketones - NST: Negative Urine Glucose - NST: Negative Urine Blood - NST: Negative MONITORING Monitor Explained: Monitor Explained; Test Explained; Patient Verbalized Understanding Time on Monitor: 07/17/2019 11:05 Time on Monitor: 07/03/2019 14:41 Time off Monitor: 07/17/2019 12:40 NST Duration: 95 NST INTERVENTIONS NST Interventions: PO Hydration Physician Notified NST: Óscar Park CNBrittney BABY A: [id number] BABY A Movement : Present Contraction Frequency : irregular FHR Baseline : 140 Accelerations : 15X15 Decelerations : None Variability : Moderate 6-25bpm NST Review: Meets Criteria for Reactive NST NST Review and Verified By : RICO Melgoza Results: Reactive BABY B Movement: Present FHR Baseline: 140 Accelerations: 15X15 Decelerations: None Variability: Moderate 6-25bpm NST Review: Meets Criteria for Reactive NST NST Reviewed And Verified By: RICO Melgoza Results: Reactive NST REPORT Report Trigger: Send Report
--- NOTE | 2019-08-09 11:14 | Non Stress Test Report ---
Non Stress Test Datetime Report Generated by CPN: 08/09/2019 11:14 DEMOGRAPHIC Test Number: 3 EGA NST: 37.3 MONITORING Monitor Explained: Monitor Explained; Test Explained; Patient Verbalized Understanding Time on Monitor: 08/09/2019 09:44 Time off Monitor: 08/09/2019 10:50 NST Duration: 66 NST INTERVENTIONS NST Interventions: PO Hydration; Reposition Patient Physician Notified NST: C. Flores, CNM BABY A Movement : Present Contraction Frequency : x2 FHR Baseline : 145 Accelerations : 15X15 Decelerations : None Variability : Moderate 6-25bpm NST Review: Meets Criteria for Reactive NST NST Review and Verified By : RICO Martinez Results: Reactive BABY B Movement: Present FHR Baseline: 140 Accelerations: 15X15 Decelerations: None Variability: Moderate 6-25bpm NST Review: Meets Criteria for Reactive NST NST Reviewed And Verified By: RICO Martniez Results: Reactive NST REPORT Report Trigger: Send Report
== END 2019-08-09 11:02 | disposition home or self-care (01) ==
LOC: LC 09:35
PROVIDERS: ATTEND Obstetrics & Gynecology
DX: O30.003 Twin pregnancy, unspecified number of placenta and unspecified number of amniotic sacs, third trimester (principal); Z3A.37 37 weeks gestation of pregnancy
CPT/HCPCS: 59025

== ENCOUNTER 2019-08-14 05:58 | Inpatient (IN) | payer MEDICAID ==
[2019-08-12 12:33] LABS: ABSOLUTE EOSINOPHILS # (AUTO) 0.2 10^3/uL (0.0-0.6); ABSOLUTE LYMPHOCYTES (AUTO) 2.2 10^3/uL (0.5-4.7); ABSOLUTE MONOCYTES (AUTO) 0.6 10^3/uL (0.1-1.4); ABSOLUTE NEUT (AUTO) 8.3 10^3/uL (1.7-8.2); BASOPHILS % (AUTO) 0.3 % (0-2); EOSINOPHILS % (AUTO) 1.6 % (0-6); HEMATOCRIT 39.6 % (36.0-47.0); HEMOGLOBIN 13.6 g/dL (12.0-15.5); LYMPHOCYTES % (AUTO) 19.5 % (13-45); MEAN CORPUSCULAR HEMOGLOBIN 28.9 pg (27.0-33.4); MEAN CORPUSCULAR HGB CONC 34.4 g/dL (32.0-36.0); MEAN CORPUSCULAR VOLUME 84 fl (80-97); MONOCYTES % (AUTO) 4.9 % (3-13); PLATELET COUNT 220 10^3/uL (150-450); RED BLOOD COUNT 4.71 10^6/uL (3.72-5.28); RED CELL DISTRIBUTION WIDTH 13.9 % (11.5-14.0); SEGMENTED NEUTROPHILS % (AUTO) 73.7 % (42-78); TOTAL CELLS COUNTED % (AUTO) 100 %; WHITE BLOOD COUNT 11.3 10^3/uL (4.0-10.5)
[2019-08-12 12:40] LABS: AMORPHOUS SEDIMENT,URINE TRACE /HPF; APPEARANCE,URINE SLIGHTLY-CLOUDY; BILIRUBIN,URINE NEGATIVE (NEGATIVE); COLOR,URINE YELLOW; GLUCOSE, URINE NEGATIVE (NEGATIVE); KETONES,URINE NEGATIVE (NEGATIVE); LEUKOCYTE ESTERASE,URINE MODERATE (NEGATIVE); NITRITE,URINE NEGATIVE (NEGATIVE); PROTEIN,URINE NEGATIVE (NEGATIVE); URINE SPECIFIC GRAVITY 1.006; UROBILINOGEN,URINE NEGATIVE mg/dL (<2.0)
[2019-08-12 13:05] LABS: URINE AMPHETAMINES SCREEN NEGATIVE; URINE BARBITURATES SCREEN NEGATIVE; URINE BENZODIAZEPINES SCREEN NEGATIVE; URINE COCAINE SCREEN NEGATIVE; URINE MARIJUANA (THC) SCREEN NEGATIVE; URINE METHADONE SCREEN NEGATIVE; URINE PHENCYCLIDINE SCREEN NEGATIVE
[~2019-08-14 05:58] MED LIST: CEFAZOLIN SODIUM 2 GM in DEXTROSE 5%-WATER 100 ML IV PRN; RINGERS SOLUTION,LACTATED 1,000 ML IV PRN
[2019-08-14] MEDS: LACTATED RINGERS 1000 ML IV PRN ×2 (08:00→19:10)
[2019-08-14] MEDS ORDERED: FENTANYL CITRATE INJ/PF 100 MCG/2 ML AMPUL ONE (08:44)
[2019-08-14] MEDS ORDERED: PROPOFOL INJ 200 MG/20 ML VIAL IV ONE (08:44)
[2019-08-14] MEDS ORDERED: MIDAZOLAM 2 MG/2 ML INJ ONE (08:44)
[2019-08-14] MEDS ORDERED: EPHEDRINE SULFATE INJ 50 MG/1 ML AMPULE ONE (08:45)
[2019-08-14] MEDS ORDERED: OXYTOCIN/NORMAL SALINE 20 UNIT/1,000 ML RTUINJ ONE ×2 (08:45→12:35)
[2019-08-14] MEDS ORDERED: ONDANSETRON HCL INJ/PF 4 MG/2 ML SDV ONE (09:22)
[2019-08-14] MEDS ORDERED: DEXAMETHASONE SOD PHOSPHATE INJ 4 MG/1 ML VIAL ONE (09:22)
[2019-08-14] MEDS ORDERED: DIPHENHYDRAMINE HCL 50 MG/ML VIAL IV PRN (10:13)
[2019-08-14] MEDS ORDERED: FENTANYL CITRATE INJ/PF 100 MCG/2 ML AMPUL IV PRN ×3 (10:13)
[2019-08-14] MEDS ORDERED: PROMETHAZINE HCL INJ 25 MG/1 ML VIAL IV PRN ×3 (10:13→10:52)
[2019-08-14] MEDS ORDERED: OXYCODONE-ACETAMINOPHEN 5-325 MG TABLET PO PRN ×2 (10:13)
[2019-08-14] MEDS ORDERED: MEPERIDINE HCL/PF INJ 25 MG/1 ML DISP.SYRIN IV PRN (10:13)
[2019-08-14] MEDS ORDERED: MEASLES,MUMPS&RUBELLA VACC/PF 0.5 ML VIAL SUBCUT PRN (10:52)
[2019-08-14] MEDS ORDERED: ACETAMINOPHEN 325 MG TABLET PO PRN (10:52)
[2019-08-14] MEDS ORDERED: OXYTOCIN/NORMAL SALINE 20 UNIT/1,000 ML RTUINJ IV PRN (10:52)
[2019-08-14] MEDS ORDERED: SIMETHICONE 80 MG TAB.CHEW PO PRN (10:52)
[2019-08-14] MEDS ORDERED: DIPH/PERTUSS(ACELL)/TETANUS VAC/PF 0.5 ML SYR (>=10YO) IM PRN (10:52)
[2019-08-14] MEDS ORDERED: RINGERS SOLUTION,LACTATED 1,000 ML IV PRN (10:52)
[2019-08-14] MEDS ORDERED: ACETAMINOPHEN 1,000 MG/100 ML RTUPB IV PRN (10:52)
--- NOTE | 2019-08-14 10:58 | Operative Report ---
Operative Report DATE OF SURGERY: 08/14/19 PREOPERATIVE DIAGNOSIS: IUP @ 37 + weeks, mono/di twins POSTOPERATIVE DIAGNOSIS: same OPERATION: Primary low transverse hysterotomy section SURGEON: IVANA KARIMI PRE FABRICATOR: VIRGILIO MCCALL ANESTHESIA: Spinal TISSUE REMOVED OR ALTERED: Placentas COMPLICATIONS: None ESTIMATED BLOOD LOSS: 1000 cc INTRAOPERATIVE FINDINGS: 2 male 's both in cephalic presentation with Apgars of 8 and 9 PROCEDURE: PROCEDURE IN DETAIL: The patient was taken to the operating room, prepared and draped in a normal sterile fashion in a supine position with a leftward tilt. A transverse skin incision was made with a scalpel and carried through to the underlying layer of fascia with the same scalpel. The fascia was excised in the midline and extended laterally with Hollie. The fascia was then dissected from the rectus muscle sharply with Hollie and the rectus muscle was divided and the peritoneal cavity was entered sharply with the same Metzenbaum. With good visualization of the bladder and the uterus the bladder blade was inserted. The hysterotomy was nicked with a scalpel and extended laterally with surgeon finger fraction. The a was then delivered atraumatically. The nose and mouth were suctioned with a suction bulb, the cord was clamped and cut and handed off to awaiting pediatricians. Cord blood was collected. Amniotomy of infant B's amniotic sac was performed B was delivered atraumatically , the nose and mouth were suctioned with a suction bulb cord was clamped and cut if it was handed off to the awaiting pediatricians . Cord blood was collected. B's umbilical cord was marked with an umbilical clamp. the placentas were removed manually. The uterus was exteriorized and cleared of clots and debris. The hysterotomy was closed with 0 Monocryl in a running, locked fashion. A second layer of the same suture was used to imbricate to ensure hemostasis. The uterus was returned to the abdomen and peritoneal cavity was cleared of clots and debris. The rectus muscle and peritoneum were repaired with mattress stitch of 2-0 Chromic. The fascia was closed with 0-Vicryl. The subcutaneous layer was closed with plain catgut and the skin was closed with 4-0 Vicryl. The patient tolerated the procedure well. Sponge, lap, and needle counts correct x2 and the patient was taken to recovery in stable condition.
[2019-08-14] MEDS ORDERED: KETOROLAC TROMETHAMINE INJ/PF 30 MG/1 ML SDV IV SCH ×2 (11:30→20:00)
[2019-08-14] MEDS ORDERED: KETOROLAC TROMETHAMINE INJ/PF 30 MG/1 ML SDV ONE (11:50)
[2019-08-14] MEDS ORDERED: ACETAMINOPHEN 1,000 MG/100 ML RTUPB IV ONE (12:14)
[2019-08-14] MEDS ORDERED: METHYLERGONOVINE MALEATE INJ/PF 0.2 MG/1 ML AMPULE ONE ×2 (12:39→12:44)
[2019-08-14] MEDS ORDERED: MISOPROSTOL 0.2 MG TABLET ONE (12:43)
[2019-08-14] MEDS ORDERED: MISOPROSTOL 0.2 MG TABLET PR ONE (12:44)
[2019-08-14] MEDS ORDERED: METHYLERGONOVINE MALEATE INJ/PF 0.2 MG/1 ML AMPULE IM ONE (12:45)
[2019-08-14] MEDS ORDERED: HYDROMORPHONE HCL INJ/PF 2 MG/ML AMPULE ONE (13:04)
[2019-08-14] MEDS: HYDROMORPHONE HCL INJ/PF 2 MG/ML AMPULE IV PRN ×2 (13:06→17:56)
[2019-08-14] MEDS: OXYCODONE-ACETAMINOPHEN 5-325 MG TABLET PO PRN (14:51)
[2019-08-14] MEDS: DOCUSATE SODIUM 100 MG CAPSULE PO SCH (17:24)
[2019-08-14] MEDS ORDERED: IBUPROFEN 800 MG TABLET ONE (23:05)
[2019-08-14] MEDS: IBUPROFEN 800 MG TABLET PO SCH (23:07)
[2019-08-15] MEDS: IBUPROFEN 800 MG TABLET PO SCH ×4 (05:53→23:46)
[2019-08-15 07:11] LABS: HEMATOCRIT 34.1 % (36.0-47.0); HEMOGLOBIN 11.8 g/dL (12.0-15.5); MEAN CORPUSCULAR HGB CONC 34.8 g/dL (32.0-36.0); MEAN CORPUSCULAR VOLUME 83 fl (80-97); PLATELET COUNT 168 10^3/uL (150-450); RED BLOOD COUNT 4.08 10^6/uL (3.72-5.28); RED CELL DISTRIBUTION WIDTH 14.1 % (11.5-14.0); WHITE BLOOD COUNT 14.4 10^3/uL (4.0-10.5)
[2019-08-15] MEDS: OXYCODONE-ACETAMINOPHEN 5-325 MG TABLET PO PRN ×3 (08:46→20:16)
[2019-08-15] MEDS ORDERED: IBUPROFEN 800 MG TABLET PO SCH (09:00)
[2019-08-15] MEDS: PRENATAL VITAMIN W DHA CAPSULE PO SCH (09:48)
[2019-08-15] MEDS: DOCUSATE SODIUM 100 MG CAPSULE PO SCH ×2 (09:48→17:48)
--- NOTE | 2019-08-15 10:39 | PDOC PROGRESS REPORT ---
Subjective-OB Progress Note for:: 08/15/19 Subjective: reports bleeding slowing, pain controlled with current meds. requesting zoloft 50mg daily-same as she has been taking Physical Exam (OB) Vital Signs: Temp Pulse Resp BP Pulse Ox 98.6 F 92 16 134/68 H 99 08/15/19 07:45 08/15/19 07:45 08/15/19 07:45 08/15/19 07:45 08/15/19 07:45 Intake & Output 08/14/19 08/15/19 08/16/19 06:59 06:59 06:59 Intake Total 1050 Output Total 4300 1300 Balance -3250 -1300 - Dressing Removed: No Incision: Well Approximated Closure Type: Opsite - Abdomen Description: Tender, Soft Hernia Present: No Fundal Description: Firm, Midline Fundal Height: u/u - u/2 - Abdominal Distension: No distension - Extremities Lower extremities: Katie's sign - neg Calf: Normal, Nontender Objective-Diagnostic Laboratory: 08/15/19 06:38 08/15/19 06:38 WBC 14.4 H RBC 4.08 Hgb 11.8 L Hct 34.1 L MCV 83 MCH 29.0 MCHC 34.8 RDW 14.1 H Plt Count 168 Assessment and Plan(PN) - Time Spent with Patient Time with patient: Less than 15 minutes - Disposition Anticipated Discharge: Home Within: within 48 hours
[2019-08-15] MEDS: SERTRALINE HCL 50 MG TABLET PO SCH (11:08)
--- NOTE | 2019-08-15 13:11 | PDOC PROGRESS REPORT ---
Subjective Progress Note for:: 08/15/19 Subjective:: Doing well. Feeling mild pain iwth ctx. No VB or LOF Good FM Reason For Visit: C- SECTION Physical Exam - Physical Exam Vital Signs: Temp Pulse Resp BP Pulse Ox 97.4 F 88 16 132/82 H 97 08/15/19 11:34 08/15/19 11:34 08/15/19 11:34 08/15/19 11:34 08/15/19 11:34 Intake & Output 08/14/19 08/15/19 08/16/19 06:59 06:59 06:59 Intake Total 1050 Output Total 4300 1300 Balance -3250 -1300 - Obstetrical Exam Dilation (cm): 3 Effacement (%): 90 Station: -1 Result Laboratory Results: 08/15/19 06:38 08/15/19 06:38 WBC 14.4 H RBC 4.08 Hgb 11.8 L Hct 34.1 L MCV 83 MCH 29.0 MCHC 34.8 RDW 14.1 H Plt Count 168 Assessment & Plan - Diagnosis (1) Term Is this a current diagnosis for this admission?: Yes (2) Term Is this a current diagnosis for this admission?: Yes - Time Time Spent with patient: Less than 15 minutes - Plan Summary Plan Summary: G1 at 40.1 wks EGA undergoing IOL. Now and AROM's clear this check _GBS neg _CEFM , Cat 1 _Desires epidural when needed _Continue pit low dose protocol _ Anticipate
[2019-08-15] MEDS ORDERED: KETOROLAC TROMETHAMINE INJ/PF 30 MG/1 ML SDV IV SCH (19:30)
[2019-08-16] MEDS: IBUPROFEN 800 MG TABLET PO SCH ×3 (06:05→12:38)
[2019-08-16] MEDS: OXYCODONE-ACETAMINOPHEN 5-325 MG TABLET PO PRN (07:03)
[2019-08-16] MEDS: PRENATAL VITAMIN W DHA CAPSULE PO SCH (09:15)
[2019-08-16] MEDS: DOCUSATE SODIUM 100 MG CAPSULE PO SCH (09:15)
[2019-08-16] MEDS: SERTRALINE HCL 50 MG TABLET PO SCH (09:15)
--- NOTE | 2019-08-16 11:22 | PDOC DISCHARGE SUMMARY ---
Impression - Admit/DC Date/PCP Admission Date/Primary Care Provider: 08/14/19 05:58 IVANA BENAVIDEZ MD Discharge Date: 08/16/19 - Discharge Diagnosis (1) Twin delivered Is this a current diagnosis for this admission?: Yes (2) S/P primary low transverse Is this a current diagnosis for this admission?: Yes (3) Term Is this a current diagnosis for this admission?: Yes - Assessment Summary: s/p primary c/s ppd2. stable and ready for discharge, keep schedule incision check next week, rtc earlier prn - Additional Information Resuscitation Status: Full Code Discharge Diet: As Tolerated, Regular Discharge Activity: Activity As Tolerated, Balance Activity w/Rest, No Driving, No Lifting Over 10 Pounds, Pelvic Rest, Slowly Increase Activity, No tub bath, Walk Frequently Referrals: IVANA BENAVIDEZ MD [Primary Care Provider] - Prescriptions: Oxycodone HCl/Acetaminophen [Percocet 5-325 mg Tablet] 1 tab PO Q4HP PRN #20 tablet PRN Reason: For Pain Scale 3-5 Ibuprofen [Motrin 800 mg Tablet] 800 mg PO Q8HP PRN #20 tablet PRN Reason: For Pain Scale 1-3 Docusate Sodium [Colace 100 mg Capsule] 100 mg PO BID #60 capsule Home Medications: Folic Acid 1 mg PO BID 06/29/19 Vit No.130/Iron/Folic [ Tablet] 1 each PO QHS 06/29/19 Sertraline HCl 50 mg PO DAILY 06/29/19 Docusate Sodium [Colace 100 mg Capsule] 100 mg PO BID #60 capsule 08/16/19 Ibuprofen [Motrin 800 mg Tablet] 800 mg PO Q8HP PRN #20 tablet 08/16/19 Oxycodone HCl/Acetaminophen [Percocet 5-325 mg Tablet] 1 tab PO Q4HP PRN #20 tablet 08/16/19 Results Laboratory Results: WBC 14.4 10^3/uL (4.0-10.5) H 08/15/19 06:38 RBC 4.08 10^6/uL (3.72-5.28) 08/15/19 06:38 Hgb 11.8 g/dL (12.0-15.5) L 08/15/19 06:38 Hct 34.1 % (36.0-47.0) L 08/15/19 06:38 MCV 83 fl (80-97) 08/15/19 06:38 MCH 29.0 pg (27.0-33.4) 08/15/19 06:38 MCHC 34.8 g/dL (32.0-36.0) 08/15/19 06:38 RDW 14.1 % (11.5-14.0) H 08/15/19 06:38 Plt Count 168 10^3/uL (150-450) 08/15/19 06:38 Lymph % (Auto) 19.5 % (13-45) 08/12/19 11:13 Nash % (Auto) 4.9 % (3-13) 08/12/19 11:13 Eos % (Auto) 1.6 % (0-6) 08/12/19 11:13 Baso % (Auto) 0.3 % (0-2) 08/12/19 11:13 Absolute Neuts (auto) 8.3 10^3/uL (1.7-8.2) H 08/12/19 11:13 Absolute Lymphs (auto) 2.2 10^3/uL (0.5-4.7) 08/12/19 11:13 Absolute Monos (auto) 0.6 10^3/uL (0.1-1.4) 08/12/19 11:13 Absolute Eos (auto) 0.2 10^3/uL (0.0-0.6) 08/12/19 11:13 Absolute Basos (auto) 0.0 10^3/uL (0.0-0.2) 08/12/19 11:13 Seg Neutrophils % 73.7 % (42-78) 08/12/19 11:13 POC Glucose 76 mg/dL (70-110) 08/14/19 07:42 Urine Color YELLOW 08/12/19 11:10 Urine Appearance SLIGHTLY-CLOUDY 08/12/19 11:10 Urine pH 7.0 (5.0-9.0) 08/12/19 11:10 Ur Specific Elizabeth 1.006 08/12/19 11:10 Urine Protein NEGATIVE mg/dL (NEGATIVE) 08/12/19 11:10 Urine Glucose (UA) NEGATIVE mg/dL (NEGATIVE) 08/12/19 11:10 Urine Ketones NEGATIVE mg/dL (NEGATIVE) 08/12/19 11:10 Urine Blood NEGATIVE (NEGATIVE) 08/12/19 11:10 Urine Nitrite NEGATIVE (NEGATIVE) 08/12/19 11:10 Urine Bilirubin NEGATIVE (NEGATIVE) 08/12/19 11:10 Urine Urobilinogen NEGATIVE mg/dL (<2.0) 08/12/19 11:10 Ur Leukocyte Esterase MODERATE (NEGATIVE) H 08/12/19 11:10 Urine WBC (Auto) 6 /HPF 08/12/19 11:10 Urine RBC (Auto) 1 /HPF 08/12/19 11:10 Urine Bacteria (Auto) 3+ /HPF 08/12/19 11:10 Squamous Epi Cells Auto 5 /HPF 08/12/19 11:10 Amorphous Sediment Auto TRACE /HPF 08/12/19 11:10 Urine Mucus (Auto) RARE /LPF 08/12/19 11:10 Urine Ascorbic Acid NEGATIVE (NEGATIVE) 08/12/19 11:10 Urine Opiates Screen NEGATIVE 08/12/19 11:10 Urine Methadone Screen NEGATIVE 08/12/19 11:10 Ur Barbiturates Screen NEGATIVE 08/12/19 11:10 Ur Phencyclidine Scrn NEGATIVE 08/12/19 11:10 Ur Amphetamines Screen NEGATIVE 08/12/19 11:10 U Benzodiazepines Scrn NEGATIVE 08/12/19 11:10 Urine Cocaine Screen NEGATIVE 08/12/19 11:10 U Marijuana (THC) Screen NEGATIVE 08/12/19 11:10 Blood Type A POSITIVE 08/12/19 11:13 Antibody Screen NEGATIVE 08/12/19 11:13
[2019-08-16 11:47] VITALS: BP 130/84
== END 2019-08-16 13:34 | disposition home or self-care (01) | DRG 788 ==
LOC: 2S 05:58
PROVIDERS: ADMIT Obstetrics & Gynecology; ATTEND Obstetrics & Gynecology
PROC: 10D00Z1 Extraction of Products of Conception, Low, Open Approach (ICD-10-PCS; principal; 2019-08-14 09:00)
DX: O30.033 Twin pregnancy, monochorionic/diamniotic, third trimester (principal); O24.425 Gestational diabetes mellitus in childbirth, controlled by oral hypoglycemic drugs; O99.344 Other mental disorders complicating childbirth; O99.334 Smoking (tobacco) complicating childbirth; F41.8 Other specified anxiety disorders; F17.211 Nicotine dependence, cigarettes, in remission; Z3A.37 37 weeks gestation of pregnancy; Z37.2 Twins, both liveborn
CPT/HCPCS: 1961; 36415; 59025; 80307; 81001; 82962; 85025; 85027; 86850; 86900; 86901; 88307; 94799; J0131; J0690; J1100; J1170; J1885; J2210; J2250; J2405; J2590; J2704; J3010; J3490; J7060; J7120